=== PATIENT | female | born 1940 | race Two or more races ===

== ENCOUNTER 2019-10-03 13:13 | Outpatient (AMBR) | payer MEDICARE, MEDICAID, SELFPAY ==
--- NOTE | 2019-09-24 13:44 | PT.ODAYNRPT ---
PT Outpatient Daily Note Date of Service: 09/24/19 OP Daily Note Visit Reasons: rigth foot injury Outpatient Physical Therapy Treatment Date: 09/24/19 Subjective: Pt states she doesn't have as much posterior thigh and knee pain on R since starting therapy. Objective: See F/S for therex Assessment: Pt is able to stretch the R gastrocs on the wall and has improved SLR with less myofascial tension of posterior LE. Pt avoids stance time on R foot due to pain and would benefit from prosthetic foot for balance and comfort. Plan: Continue per POC Length of Time (minutes) of Treatment: 30 Minutes Office Procedures PT Procedures PT Date of Service: 09/24/19 Therapeutic Exercise 30 minutes: Yes
--- NOTE | 2019-09-26 15:12 | PT.ODAYNRPT ---
PT Outpatient Daily Note Date of Service: 09/26/19 OP Daily Note Visit Reasons: rigth foot injury Outpatient Physical Therapy Treatment Date: 09/26/19 Subjective: Pt states she doesn't have as much posterior thigh and knee pain on R since starting therapy. Objective: See F/S for therex Assessment: Pt is able to stretch the R gastrocs on the wall and has improved SLR with less myofascial tension of posterior LE. Pt avoids stance time on R foot due to pain and would benefit from prosthetic foot for balance and comfort. Plan: Continue per POC Length of Time (minutes) of Treatment: 30 Minutes Office Procedures PT Procedures PT Date of Service: 09/24/19 Therapeutic Exercise 30 minutes: Yes PT Procedures PT Date of Service: 09/26/19 Therapeutic Exercise 30 minutes: Yes
--- NOTE | 2019-10-01 11:38 | PT.ODAYNRPT ---
PT Outpatient Daily Note Date of Service: 10/01/19 OP Daily Note Visit Reasons: rigth foot injury Outpatient Physical Therapy Treatment Date: 10/01/19 Subjective: Pt states she doesn't have as much posterior thigh and knee pain on R since starting therapy. Objective: See F/S for therex Assessment: Pt is able to stretch the R gastrocs on the wall and has improved SLR with less myofascial tension of posterior LE. Pt avoids stance time on R foot due to pain and would benefit from prosthetic foot for balance and comfort. Plan: Reassess Length of Time (minutes) of Treatment: 30 Minutes Office Procedures PT Procedures PT Date of Service: 09/24/19 Therapeutic Exercise 30 minutes: Yes PT Procedures PT Date of Service: 09/26/19 Therapeutic Exercise 30 minutes: Yes PT Procedures PT Date of Service: 10/01/19 Therapeutic Exercise 30 minutes: Yes
--- NOTE | 2019-10-03 18:42 | PT.ODS1RPT ---
PT OP Progress/Discharge Note Date of Service: 10/03/19 Progress Note/DC Note Progress Note/Discharge Note: DC Note Patient Information Visit Reasons: rigth foot injury Service Continue Service or Discharge: Discharge Discharge Date: 10/03/19 Status Subjective: Pt states she doesn't have as much posterior thigh and knee pain on R since starting therapy. Objective: R ankle AroM: DF: 5 deg PF: 12 deg Gait: Decreased stance time on R Assessment: Pt has attended 12/12 sessions and made progress with WB tolerance and has improved PF ROM of the R ankle. She has less TTP of posterior R knee and gastrocs and has responded well to HS and gastroc stretching. Progress with goals has plateaued. Pt is able to stretch the R gastrocs on the wall and has improved SLR with less myofascial tension of posterior LE. Pt avoids stance time on R foot due to pain and would benefit from prosthetic foot for balance and comfort. Plan: D/C with HEP Office Procedures PT Procedures PT Date of Service: 09/24/19 Therapeutic Exercise 30 minutes: Yes PT Procedures PT Date of Service: 09/26/19 Therapeutic Exercise 30 minutes: Yes PT Procedures PT Date of Service: 10/01/19 Therapeutic Exercise 30 minutes: Yes PT Procedures PT Date of Service: 10/03/19 Therapeutic Exercise 30 minutes: Yes
== END 2019-10-23 23:59 | disposition home or self-care (01) ==
PROVIDERS: PCP Orthopaedic Surgery; Referring Provider Orthopaedic Surgery; Visit Provider Orthopaedic Surgery
DX: S97.81XS Crushing injury of right foot, sequela (principal); M79.671 Pain in right foot; E11.9 Type 2 diabetes mellitus without complications; I10 Essential (primary) hypertension; X58.XXXS Exposure to other specified factors, sequela
CPT/HCPCS: 97110

== ENCOUNTER 2024-03-27 10:12 | Day surgery (SDC) | payer MEDICARE, MEDICAID, SELFPAY ==
--- NOTE | 2024-03-26 10:33 | EKG_ITS ---
[facility] Test Date: 2024-03-26 Pat Name: CLAUDIA ARAGON Department: Room: - Gender: Female Conveyor Man: REBEKA : 1940 Requested By: Akhil Hernandez Order Number: [id number] Reading MD: Akhil Hernandez Measurements Intervals [place] Rate: 68 P: 53 IN: 200 QRS: -12 QRSD: 121 T: 110 QT: 415 QTc: 444 Interpretive Statements SINUS RHYTHM WITH OCCASIONAL VENTRICULAR PREMATURE COMPLEXES LEFT VENTRICULAR HYPERTROPHY AND ST-T CHANGE POSSIBLE SEPTAL MYOCARDIAL INFARCTION , PROBABLY RECENT ACUTE VT Compared to ECG 06/13/2020 10:41:20 Ventricular premature complex(es) now present ST (T wave) deviation now present Myocardial infarct finding now present Intraventricular conduction delay no longer present /store/S0/[id number]/ecg/[id number].pdf
[2024-03-26 10:57] LABS: Basophils # (Auto) 0.1 Thou/mm3 (0.0-0.2); Basophils % (Auto) 1 % (0-2.5); Eosinophils # (Auto) 0.2 Thou/mm3 (0.0-0.5); Eosinophils % (Auto) 4 % (0-10); Hematocrit 37.3 % (36.0-46.0); Hemoglobin 12.3 g/dL (12.0-16.0); Immature Granulocytes % (Auto) 0 % (0-0); Immature Granulocytes Auto 0.01 Thou/mm3 (0.00-0.00); Lymphocytes % (Auto) 39 % (10-50); Mean Corpuscular Hemoglobin 31.6 pg (25.0-35.0); Mean Corpuscular Volume 96 fL (80-100); Monocytes # (Auto) 0.4 Thou/mm3 (0.0-0.8); Monocytes % (Auto) 8 % (0-12); Neutrophils # (Auto) 2.5 Thou/mm3 (1.8-7.7); Neutrophils % (Auto) 48 % (37-80); Nucleated Red Blood Cell % 0 /100 WBC (0); Platelet Count 156 Thou/mm3 (140-440); Red Blood Count 3.89 Miln/mm3 (4.00-5.20); White Blood Count 5.2 Thou/mm3 (3.6-11.0)
[2024-03-26 11:00] LABS: Prothrombin Time 10.8 Seconds (9.0-12.2)
[2024-03-26 11:30] LABS: Anion Gap 7 (7-16); BUN/Creatinine Ratio 24 Ratio (12-20); Blood Urea Nitrogen 24 mg/dL (9-23); Calcium 9.8 mg/dL (8.3-10.6); Carbon Dioxide 27.7 mMol/L (20.0-31.0); Chloride 105 mMol/L (98-107); Glucose 149 mg/dL (74-106); Osmolality,Calculated 286 (275-295); Potassium 4.6 mMol/L (3.4-5.1); Sodium 140 mMol/L (136-145); eGFR 57 See Note
[2024-03-27] VITALS (14 sets, daily range): BP systolic 123–206; BP diastolic 62–123; PULSE 59–84; RESP 15–20; TEMP 36.3–36.6; O2SAT 96–100; BMI 34.5
[2024-03-27] MEDS: SODIUM CHLORIDE 0.45 % 500 ML 100 ML IV (11:56)
--- NOTE | 2024-03-27 13:32 | ESOP_ITS ---
RE: CLAUDIA ARAGON : 1940 DATE OF OPERATION: 03/27/2024 PROCEDURE PERFORMED: 1. Diagnostic left heart cardiac catheterization, selective coronary angiogram, left ventricular angiogram, CPT code 86883. 2. Conscious sedation for 30-minute duration. 3. Ultrasound-guided access, right radial artery. DIAGNOSES: Coronary artery disease, abnormal stress test, shortness of breath, chest pain. HISTORY AND INDICATIONS: The patient is an 83-year-old lady with a history of hypertension, diabetes mellitus, has recurrent episodes of chest pain, palpitations, left arm tingling, numbness, and shoulder discomfort. Cardiac stress test was abnormal showing inferior wall perfusion defect. Hence, coronary angiogram was recommended to assess if the patient is a candidate for coronary revascularization and intervention. DESCRIPTION OF PROCEDURE: The patient was brought to cardiac catheterization laboratory. She was given 2 mg Versed and 50 mcg of fentanyl for sedation. The right radial approach was taken. The right radial artery was cannulated with micropuncture technique. A 6-Divehi Glidesheath was introduced. Selective right and left coronary angiogram performed by TIG-4 diagnostic catheter. Left heart catheterization, left ventricular angiogram performed by TIG-4 diagnostic catheter. The patient tolerated the procedure well. There were no complications. TR band was applied. Hemostasis was secured successfully. Cardiac catheterization showed following findings. HEMODYNAMICS: Left ventricular pressure 120/10. Aortic pressure 120/68. No gradient across the aortic valve. Left ventricular angiogram showed normal left ventricular wall motion, ejection fraction 70%. Coronary angiogram showed following findings: The right coronary artery is small and nondominant, gives off RV branches only. Left coronary system. Left main coronary artery is normal. Left anterior descending artery showed mild plaque at the proximal segment. No significant stenosis. Left anterior descending artery otherwise appeared normal. Ramus intermedius is normal. Circumflex artery is large and dominant, gives off PDA posterolateral branches, all of them normal. SUMMARY OF FINDINGS AND SUGGESTIONS: 1. Dominant left coronary system. 2. Nondominant right coronary artery. 3. Normal left ventricular systolic function. Ejection fraction is 65%. 4. Nonobstructive epicardial coronary artery disease with mild atherosclerotic plaque. No significant stenosis. RECOMMENDATIONS: The patient is reassured about the absence of significant obstructive coronary artery disease. Excellent prognosis. Recommended to continue medical management and reassured of negative angiogram. TR band is applied. Hemostasis is secured. DT: 12:38:57 TT: 13:30:00 Ref: [id number] - TID: [id number]
--- NOTE | 2024-03-27 14:15 | PC.NURSE ---
TR band removed at this time. Surgical site asymptomatic, no active bleeding, no hematoma noted on right upper extremity or around the surgical site. Capillary refill < 3 seconds. No noted changes in color or temperature on right upper extremity. Patient denies general and localized pain, no loss in sensation, no tingling or numbness felt to right upper extremity. Tagaderm and Coban wrap applied. Will continue to monitor
--- NOTE | 2024-03-27 14:30 | PC.NURSE ---
Surgical site remains asymptomatic, no active bleeding, no hematoma noted on right upper extremity or around the surgical site. Capillary refill < 3 seconds. No noted changes in color or temperature on right upper extremity. Patient denies generalized and localized pain, no loss in sensation, no tingling or numbness felt to right upper extremity. Tagaderm and Coban wrap in place, clean, and dry. Will continue to monitor
--- NOTE | 2024-03-27 14:49 | PC.NURSE ---
patient is awake, alert, breathing unlabored, s/p LHC by Dr. Alvarenga, TR band has been removed, dressing to right wrist dry with no active bleeding or hematoma. Report received from Sergio KELSEY. Discharge instructions have been given by conference interpreter Sergio KELSEY, clau to discharge patient home at 1530.
--- NOTE | 2024-03-27 16:02 | PC.NURSE ---
1537 patient is awake, alert, breathing unlabored, dressind dry with no bleeding or hematoma, patient discharged home in wheelchair with all belongings including cane
== END 2024-03-27 15:37 | disposition home or self-care (01) ==
PROVIDERS: PCP Physician Assistant; Referring Provider Internal Medicine Cardiovascular Disease; Visit Provider Internal Medicine Cardiovascular Disease
PROC: (CPT 93458; principal; 2024-03-27 11:30)
DX: I25.118 Atherosclerotic heart disease of native coronary artery with other forms of angina pectoris (principal); E11.9 Type 2 diabetes mellitus without complications; I10 Essential (primary) hypertension; Z01.810 Encounter for preprocedural cardiovascular examination
CPT/HCPCS: 93458; 36415; 80048; 85025; 85610; 85730; 93005; 99152; 99153; A4649; C1887; C1894; J0171; J0461; J1643; J2250; J2310; J2371; J3010; J3490; J7040; Q9967; J1644; J2305

== ENCOUNTER 2025-02-13 13:20 | Emergency (ER) | payer MEDICARE, MEDICAID, SELFPAY ==
[2025-02-13 13:45] VITALS: BP 178/80; PULSE 65; RESP 20; TEMP 36.6; O2SAT 96
--- NOTE | 2025-02-13 14:00 | XR_ITS ---
Examination: CT abdomen and pelvis without contrast. Coronal 3-D reconstructions. Sagittal 2-D reconstructions. Date and time of exam: February 13, 2022, 1402 hours INDICATIONS: Generalized abdominal pain with no bowel movement beginning 2 days ago CTDI: vol (mGy): 13.8 DLP: (mGycm): 825 Technique: Axial images of the abdomen have been obtained, 3 mm slice thickness Intravenous contrast material has not been administered. Low dose protocols were performed. One or more of the following dose reduction techniques were used; automated exposure control, adjustment of the mA and/or KV according to patient size, use of iterative reconstruction technique. Findings: No visualized liver or splenic lesion Absent gallbladder No pancreatic or adrenal mass No renal or ureteral calculi, no hydronephrosis Aorta normal size Moderate stool in the colon Colonic diverticulosis Normal appendix Anterior pelvic wall hernia defect 5.9 cm containing small bowel but no incarcerated bowel No diverticulitis Urinary bladder intact Absent uterus No pelvic mass Small fat-containing common femoral hernias Prominent osteopenia with diffuse moderate to advanced lumbar degenerative disc disease IMPRESSION: Normal appendix 5.9 cm anterior pelvic wall hernia defect containing small bowel but no incarcerated bowel No bowel obstruction No diverticulitis
--- NOTE | 2025-02-13 14:00 | PD.EDRME ---
Rapid Medical Screening Exam E Arrival date/time: 02/13/25 13:20 84-year-old female presents to the emergency room today for complaints of lower abdominal pain, constipation x 4 days Chief Complaint: Back Pain/Injury Vital signs: Vital Signs Temperature 97.8 F 02/13/25 13:45 Pulse Rate 65 02/13/25 13:45 Respiratory Rate 20 02/13/25 13:45 Blood Pressure 178/80 H 02/13/25 13:45 Pulse Oximetry (%) 96 02/13/25 13:45 Oxygen Delivery Method Room Air 02/13/25 13:45
[2025-02-13] MEDS: MAGNESIUM CITRATE 300 ML BTL 150 ML PO (14:34)
[2025-02-13 14:36] LABS: Basophils # (Auto) 0.1 Thou/mm3 (0.0-0.2); Basophils % (Auto) 1 % (0-2.5); Eosinophils # (Auto) 0.2 Thou/mm3 (0.0-0.5); Eosinophils % (Auto) 3 % (0-10); Hematocrit 40.0 % (36.0-46.0); Hemoglobin 13.3 g/dL (12.0-16.0); Immature Granulocytes Auto 0.01 Thou/mm3 (0.00-0.00); Lymphocytes # (Auto) 2.6 Thou/mm3 (1.0-4.8); Lymphocytes % (Auto) 34 % (10-50); Mean Corpuscular HGB Conc 33.3 g/dl (31.0-37.0); Mean Corpuscular Hemoglobin 31.3 pg (25.0-35.0); Mean Corpuscular Volume 94 fL (80-100); Monocytes # (Auto) 0.5 Thou/mm3 (0.0-0.8); Monocytes % (Auto) 6 % (0-12); Neutrophils # (Auto) 4.5 Thou/mm3 (1.8-7.7); Neutrophils % (Auto) 57 % (37-80); Nucleated Red Blood Cell # 0.00 Thou/mm3 (0.00-0.00); Nucleated Red Blood Cell % 0 /100 WBC (0); Platelet Count 175 Thou/mm3 (140-440); RDW Standard Deviation 46.4 fL (36.4-46.3); Red Blood Count 4.25 Miln/mm3 (4.00-5.20); White Blood Count 7.8 Thou/mm3 (3.6-11.0)
[2025-02-13 14:53] LABS: Alanine Aminotransferase 10 U/L (10-49); Albumin, Serum 4.6 gm/dL (3.4-4.8); Albumin/Globulin Ratio 1.6 (1.2-2.2); Alkaline Phosphatase 106 U/L (46-116); Anion Gap 10 (7-16); Aspartate Amino Transferase 15 U/L (0-34); BUN/Creatinine Ratio 20 Ratio (12-20); Bilirubin,Total 0.4 mg/dL (0.3-1.2); Blood Urea Nitrogen 22 mg/dL (9-23); Calcium 9.6 mg/dL (8.3-10.6); Calcium (Corrected) 9.6 mg/dL (8.5-10.1); Carbon Dioxide 25.9 mMol/L (20.0-31.0); Chloride 107 mMol/L (98-107); Creatinine (Component) 1.1 mg/dL (0.6-1.3); Globulin 2.9 gm/dL (2.3-3.5); Glucose 214 mg/dL (74-106); Lipase 35 U/L (12-53); Osmolality,Calculated 294 (275-295); Potassium 4.6 mMol/L (3.4-5.1); Sodium 143 mMol/L (136-145); Total Protein 7.5 gm/dL (5.7-8.2); eGFR 50 See Note
[2025-02-13 15:11] LABS: Collection Type, Urine Clean Catch
[2025-02-13 15:29] LABS: Bilirubin,Urine Negative (Negative); Blood,Urine Negative (Negative); Clarity,Urine Clear (Clear/Hazy); Color,Urine Lt-Yellow (Lt Yel-Yel); Culture Indicated,Urine Not Indicated; Glucose, Urine 4+ (Negative); Ketones,Urine Negative (Negative); Leukocyte Esterase,Urine Positive (Negative); Nitrite,Urine Negative (Negative); PH,Urine 6.0 (5.0-7.0); Protein,Urine Negative (Neg - Trace); RBC,Urine 1 /hpf (0-3); Specific Gravity,Urine 1.034 (1.001-1.035); Squamous Epithelial Cell,Urine < 1 /hpf (0-5); Urobilinogen,Urine Negative mg/dL (0.0-1.0); WBC,Urine 1 /hpf (0-5)
--- NOTE | 2025-02-13 15:50 | EDNOTE_ITS ---
<Statement entered by Ccua Martinez MD - 02/16/25 18:00> As co-signing physician, I was present and available for consult prn. I concur with the plan and care as documented by the midlevel provider. ED Abdominal Pain RME/HPI General Chief Complaint: Back Pain/Injury Stated complaint: 4 days no BM, lower back pain Time seen by provider: 02/13/25 15:44 Arrival date/time: 02/13/25 13:20 84-year-old female presents to the emergency room today for complaints of lower abdominal pain, constipation x 4 days Limitations: no limitations RME / HPI RME / HPI narrative: 02/13/25 13:20 84-year-old female presents to the emergency room today for complaints of lower abdominal pain, constipation x 4 days Related Data Home Medications ?Medication ?Instructions ?Recorded ?Confirmed empagliflozin 12.5 mg-metformin 1 tab PO BID 03/27/24 03/27/24 1,000 mg tablet (Synjardy) insulin glargine 100 unit/mL (3 20 unit subcut QAM 07/1603/27/24 mL) subcutaneous pen (Lantus Solostar U-100 Insulin) Previous Rx's ?Medication ?Instructions ?Recorded docusate sodium 100 mg capsule 100 mg PO BID 5 days #1 0 caps 02/13/25 polyethylene glycol 3350 17 17 g PO QDAY 3 days #119 g liat 02/13/25 gram/dose oral powder (Miralax) Allergies Allergy/AdvReac Type Severity Reaction Status Date / Time No Known Allergies Allergy Verified 02/13/25 13:25 Review of Systems Review of Systems Systems Reviewed: All systems reviewed, normal except as documented Constitutional Constitutional: Reports system reviewed and no additional complaints, except as documented, Denies fever(s) and Denies headache(s) Eyes Eyes: Reports system reviewed and no additional complaints, except as documented and Denies blurry vision ENT Ears, Nose, Mouth, and Throat: Reports system reviewed and no additional complaints, except as documented, Denies headache(s), Denies nasal congestion and Denies nasal discharge Cardiovascular Cardiovascular: Reports system reviewed and no additional complaints, except as documented, Denies chest pain and Denies dyspnea Respiratory Respiratory: Reports system reviewed and no additional complaints, except as documented, Denies chest congestion, Denies cough and Denies dyspnea Gastrointestinal Gastrointestinal: Reports system reviewed and no additional complaints, except as documented and Reports abdominal pain (Lower abdominal pain, constipation) Integumentary/Breasts Skin/Breast: Reports system reviewed and no additional complaints, except as documented and Denies rash Neurologic Neurologic: Reports system reviewed and no additional complaints, except as documented, Reports as per HPI and Denies headache(s) Past Medical History Past Medical History NEUROLOGIC: Negative Neurological Disorders CARDIAC: Negative Cardiac Disorders or Congestive Heart Failure RESPIRATORY: Negative Chronic Obstructive Pulmonary Disease (COPD) GASTROINTESTINAL: Negative Gastrointestinal Disorders GENITOURINARY: Negative Genitourinary Disorders or Renal Disease REPRODUCTIVE: Positive Previous Pregnancies (x9) MUSCULOSKELETAL: Positive Musculoskeletal Disorders (knee pain) ENT: Positive Cataracts (no surgery) ENDOCRINE: Positive Endocrine Disorders and Diabetes Mellitus Type 2; Negative Diabetes Mellitus Type 1 HEMATOLOGIC: Negative Blood Disorders OTHER HISTORY: Positive Blood Transfusions and Anesthesia Reactions (nausea/vomiting); Negative Blood Transfusion Reaction or Cancer Surgical History SURGICAL: Positive Abdominal Surgery, Joint Replacement and Amputation (foot); Negative Cardiac Surgery or Endocrine Surgery Social History SMOKING STATUS: Never smoker ED Exam General Limitations: Present no limitations General appearance: Present alert and in no apparent distress Head Head exam: Present atraumatic Eye Eye exam: Present normal appearance, PERRL and EOMI ENT ENT exam: Present normal exam, normal oropharynx and mucous membranes moist Neck Neck exam: Present normal inspection, full ROM and trachea midline Chest Chest inspection: Present normal inspection and symmetric chest wall rise Respiratory Respiratory exam: Present normal lung sounds bilaterally Cardiovascular Cardiovascular exam: Present regular rate, normal rhythm and normal heart sounds Abdominal Exam Abdominal exam: Present soft, tenderness and normal bowel sounds; Absent distention, guarding, rebound or rigidity Extremities Exam Extremities exam: Present normal inspection and full ROM Back Exam Back exam: Present normal inspection and full ROM Neurological Exam Neurological exam: Present alert, oriented X3 and CN II-XII intact Psychiatric Psychiatric exam: Present normal affect and normal mood Skin Skin exam: Present warm, dry, intact and normal color Course Quality Measures none Orders Category Date Time Status CT abdomen pelvis wo con Stat Exams 02/13/25 14:00 Completed CBC Stat Lab 02/13/25 14:11 Completed Comprehensive Metabolic Panel Stat Lab 02/13/25 14:11 Completed Lipase Stat Lab 02/13/25 14:11 Completed UA, C/S IF [Urinalysis, C/S if Indicated] Stat Lab 02/13/25 14:52 Completed Magnesium Citrate Liqd [Citrate of Magnesia Liqd] Med 02/13/25 14:00 Discontinued 150 ml PO X1 ONE Vital Signs Vital signs: Vital Signs Temperature 97.8 F 02/13/25 13:45 Pulse Rate 65 02/13/25 13:45 Respiratory Rate 20 02/13/25 13:45 Blood Pressure 178/80 H 02/13/25 13:45 Pulse Oximetry (%) 96 02/13/25 13:45 Oxygen Delivery Method Room Air 02/13/25 13:45 O2 saturation 96% on room air within normal limits Abdominal Pain MDM MDM Narrative MDM Narrative:: 84-year-old female presents to the emergency room today for complaints of lower abdominal pain, constipation x 4 days On exam patient well-appearing patient does not appear ill or toxic distress Lab work obtained no acute emergent findings noted CT scan obtained consistent with large amounts of stool but no other acute emergent findings Patient given magnesium citrate here discharged home with prescriptions Patient discharged home in no distress to follow-up with primary care doctor in the next 24 to 48 hours and for any worsening symptoms to return to the ER immediately Patient data External records reviewed:: [facility] previous records Clinical information provided by:: patient Social determinants that could affect healthcare access:: none Patient has the following chronic illnesses:: History How is presenting disease/condition affected by chronic disease/condition?: caused by Evaluation data The following diagnostics were reviewed and interpreted by me:: lab results and radiology exam(s) Lab and/or radiology exams considered but not ordered:: Labs radiology obtained Interpretation Summary: Reviewed by me Medications / Prescriptions Medications or Prescriptions considered but not ordered:: Given Medication administrations:: Medication Administration History Discontinued Medications Magnesium Citrate (Magnesium Citrate 300 Ml Btl) 150 ml PO X1 ONE Stop: 02/13/25 14:01 Last Admin: 02/13/25 14:34 Dose: 150 ml Documented By: Given Consultations Consultation(s) initiated? (list below): No Diagnosis Differential diagnosis abdominal pain: abdominal pain and pancreatitis Most likely diagnosis given after review of the tests above:: Abdominal pain Admission Indicated Admission indicated?: not indicated Admission Request Was there a request for admission?: No Disposition Plan Disposition Plan: Discharge Discharge Attestation Discharge Attestation: The patient and all family members were given an opportunity to ask questions and understood the discharge instructions. Discharge instructions specifically effects, indications for sooner follow up or return to the emergency department, and the expected course of current diagnosis. Patient condition: Stable Discharge Plan Plan Patient Disposition: HOME (Self Care) Discharge Disposition comment: Stable Prescriptions/Referrals Prescriptions/Med Rec: New docusate sodium 100 mg capsule 100 mg PO BID 5 Days Qty: 10 0RF polyethylene glycol 3350 [Miralax] 17 gram/dose powder 17 g PO QDAY 3 Days Qty: 119 0RF No Action insulin glargine [Lantus Solostar U-100 Insulin] 100 unit/mL (3 mL) Insulin Pen 20 unit SUBCUT QAM Synjardy 12.5-1,000 mg Tablet 1 tab PO BID Referrals: Harris Crespo [Primary Care Provider] - 02/14/25 Problem List Clinical Impression: Constipation Patient/Caregiver Discharge Instructions Education Materials: ED Constipation (Adult) Additional Instructions: Please follow up with your primary care doctor in the next 24-48hrs for any worsening symptoms return here immediately Print Language: Lithuanian Stand Alone Forms: [place] Award Info., Patient Portal Info Letter PA/REGIONAL CRA Supervising Physician PA/REGIONAL CRA Supervising Physician: Dr. Rao
== END 2025-02-13 16:27 | disposition home or self-care (01) ==
PROVIDERS: Nurse Practitioner Primary Care; Emergency Provider Emergency Medicine; PCP Physician Assistant
DX: K59.00 Constipation, unspecified (principal)
CPT/HCPCS: 36415; 74176; 80053; 81001; 83690; 85025; 99283; A9270